=== PATIENT | female | born 1990 | race Caucasian/White ===

== ENCOUNTER 2016-04-28 12:30 | Emergency (ER) | payer SELFPAY ==
--- NOTE | 2016-04-28 13:08 | ED ---
Recheck HPI - General Chief Complaint: Recheck/Abnormal Lab/Rx Stated Complaint: Blood Work Time Seen by Provider: 04/28/16 12:54 Source: patient, RN notes reviewed, old records reviewed Mode of arrival: ambulatory Limitations: no limitations - History of Present Illness Initial Comments: Is a 25-year-old female with chief complaint of possible drug intoxication. Patient reports that on Friday evening after work she had one drink. 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 Patient reports that she was with people that she is unfamiliar with. She states that she left her drink for approximately 30 minutes and return to her drinking continue to finish it. Patient reports that after that she blacked out and does not remember any of the evening for the following morning or today. Patient reports that she only had one drink and denies any more. Patient reports that yesterday she slept until 3 PM and feels very foggy. She reports that she has been able to drink and does not feel nauseated. She denies any fever or chills. She denies any other physical symptoms. Patient reports she has a negative past medical history. - Related Data Home Medications Medication Instructions Recorded Confirmed Dextroamphetamine/Amphetamine 15 - 30 mg PO DAILY 04/28/16 04/28/16 [Adderall] Allergies Allergy/AdvReac Type Severity Reaction Status Date / Time No Known Allergies Allergy Verified 04/28/16 13:34 Review of Systems ROS Statement: Those systems with pertinent positive or pertinent negative responses have been documented in the HPI. ROS Other: All systems not noted in ROS Statement are negative. Past Medical History Past Medical History: No Reported History History of Any Multi-Drug Resistant Organisms: None Reported Past Surgical History: No Surgical Hx Reported Past Psychological History: No Psychological Hx Reported Smoking Status: Never smoker Past Alcohol Use History: Occasional Past Drug Use History: Marijuana General Exam - General Exam Comments Initial Comments: Patient is a pleasant 25 year old female. She is not any acute distress. Limitations: no limitations General appearance: alert, in no apparent distress Head exam: Present: atraumatic Eye exam: Present: normal appearance, PERRL, EOMI. Absent: scleral icterus, conjunctival injection, periorbital swelling ENT exam: Present: normal exam, mucous membranes moist Neck exam: Present: normal inspection. Absent: tenderness, meningismus, lymphadenopathy Respiratory exam: Present: normal lung sounds bilaterally. Absent: respiratory distress, wheezes, rales, rhonchi, stridor Cardiovascular Exam: Present: regular rate, normal rhythm, normal heart sounds. Absent: systolic murmur, diastolic murmur, rubs, gallop, clicks GI/Abdominal exam: Present: soft, normal bowel sounds. Absent: distended, tenderness, guarding, rebound, rigid Extremities exam: Present: normal inspection, full ROM, normal capillary refill. Absent: tenderness, pedal edema, joint swelling, calf tenderness Back exam: Present: normal inspection Neurological exam: Present: alert, oriented X3, CN II-XII intact Psychiatric exam: Present: normal affect, normal mood Skin exam: Present: warm, dry, intact, normal color. Absent: rash Course Vital Signs 04/28/16 12:44 Temperature 98.0 F Pulse Rate 66 Respiratory 20 Rate Blood Pressure 124/59 - Reevaluation(s) Reevaluation #1: 04/28/16 13:38 was reevaluated and resting comfortably in the room. She does drink one full 16 ounce glass of water. Medical Decision Making - Medical Decision Making Patient is 25-year-old female with chief complaint of possible intoxication on Friday night. Patient is concerned that she could've possibly been laced with a date rate drug, GHB. Patient completed a urine drug screen and urine test. She denies any other symptoms including fever or chills or other related symptoms. She states that all of these fogginess and excessive tiredness occurred after she had the one drink. Patient adamantly denies any possibility of sexual abuse. Patient's urine test is negative. Patient's urine drug screen is positive for marijuana. Patient has no other symptoms at this time. Patient reports that she does not feel confused or lightheaded at this time. Patient will be discharged and instructed to follow- up with her primary care provider. I did advise the patient that she is to be very cautious about her drinks. Patient understands treatment plan will comply. Return parameters were discussed. - Lab Data Lab Results 04/28/16 04/28/16 Range/Units 13:25 13:25 Urine HCG, Qual Not Detected (Not Detectd) Urine Opiates Screen Not Detected (NotDetected) Ur Oxycodone Screen Not Detected (NotDetected) Urine Methadone Screen Not Detected (NotDetected) Ur Propoxyphene Screen Not Detected (NotDetected) Ur Barbiturates Screen Not Detected (NotDetected) U Tricyclic Antidepress Not Detected (NotDetected) Ur Phencyclidine Scrn Not Detected (NotDetected) Ur Amphetamines Screen Not Detected (NotDetected) U Methamphetamines Scrn Not Detected (NotDetected) U Benzodiazepines Scrn Not Detected (NotDetected) Urine Cocaine Screen Not Detected (NotDetected) U Marijuana (THC) Screen Detected H (NotDetected) Disposition Clinical Impression: Marijuana use, History of confusion without neurologic abnormalities Disposition: HOME SELF-CARE Condition: Good Instructions: Polysubstance Abuse (ED) Additional Instructions: Patient instructed to rest, increase fluids and to follow-up with a primary care provider. Patient advised to return to the [facility] if any alarming signs or symptoms occur. Patient is to monitor drinks at all times. Discussed the possibility of laced drinks with employer. Referrals: None,Stated [Primary Care Provider] - 1-2 days Time of Disposition: 13:56
[2016-04-28 14:23] VITALS: BP 106/57; PULSE 75; RESP 16; TEMP 98.5
== END 2016-04-28 14:28 | disposition home or self-care (01) ==
LOC: EC 12:30
DX: R41.0 Disorientation, unspecified (principal); F12.90 Cannabis use, unspecified, uncomplicated; Z79.899 Other long term (current) drug therapy
CPT/HCPCS: 80306; 81025; 99282